=== PATIENT | female | born 1955 | race Caucasian/White ===

== ENCOUNTER 2021-04-25 11:40 | Emergency (ER) | payer OTHER ==
[2021-04-25 12:20] LABS: HEMATOCRIT 23.8 % (32.4-45.2); HEMOGLOBIN 7.9 GM/dL (10.7-15.3); MCH 30.8 pg (25.7-33.7); MCHC 33.2 g/dl (32.0-36.0); MEAN CELL VOLUME 92.8 fl (80-96); MEAN PLT VOLUME 8.4 fl (7.5-11.1); PLATELET COUNT 393 10^3/uL (134-434); RBC 2.56 M/mm3 (3.60-5.2); RDW 21.4 % (11.6-15.6); WHITE BLOOD COUNT 27.6 K/mm3 (4.0-10.0)
[2021-04-25 12:31] LABS: INR 1.08 (0.83-1.09); PROTHROMBIN TIME (PATIENT) 13.3 SEC (9.7-13.0)
[2021-04-25 12:33] LABS: ACTIVATED PTT 28.9 SECONDS (25.2-36.5)
[2021-04-25 12:42] LABS: CHLORIDE 92 mmol/L (98-107); SODIUM 136 mmol/L (136-145)
[2021-04-25 12:45] LABS: ALBUMIN 2.4 g/dl (3.4-5.0); ANION GAP 19 MMOL/L (8-16); BLOOD UREA NITROGEN 86.4 mg/dL (7-18); CALCIUM 9.3 mg/dL (8.5-10.1); CO2 24 mmol/L (21-32)
[2021-04-25 12:46] LABS: GLUCOSE,RANDOM 335 mg/dL (74-106)
[2021-04-25 12:48] LABS: SGPT/ALT 17 U/L (13-61)
[2021-04-25 12:49] LABS: CREATININE 3.9 mg/dL (0.55-1.3); SGOT/AST 39 U/L (15-37)
[2021-04-25 12:50] LABS: BILIRUBIN,TOTAL 0.4 mg/dL (0.2-1); TOT PROT 8.8 g/dl (6.4-8.2)
[2021-04-25 12:51] LABS: ALK PHOS 182 U/L (45-117)
[2021-04-25 12:56] VITALS: BMI 29.9
[2021-04-25 12:59] VITALS: TEMP 100.3
[2021-04-25] MEDS ORDERED: VANCOMYCIN 1 GM in D5W (PRE-DOCKED) 1,000 MG/250 ML IVPB ONE (13:00)
[2021-04-25] MEDS ORDERED: PIPERACILLIN/TAZOB 3.375 GM 3.375 GM in DEXTROSE 5%-WATER - 50 ML IVPB ONE (13:00)
[2021-04-25] MEDS ORDERED: ACETAMINOPHEN 1000 MG/100 ML VIAL (NON FORMULARY) IVPB ONE (13:03)
[2021-04-25] MEDS ORDERED: ACETAMINOPHEN INJECTION 100 ML IVPB ONE (13:06)
[2021-04-25] MEDS ORDERED: PIPERACILLIN/TAZOB 3.375 GM 3.375 GM/50 ML BAG IVPB ONE (13:41)
[2021-04-25 13:54] LABS: VENOUS O2 SATURATION 86.3 % (70-80); VENOUS PCO2 37.1 mmHg (38-52); VENOUS PH 7.49 (7.310-7.410)
[2021-04-25 14:22] LABS: LACTIC ACID 2.1 mmol/L (0.4-2.0)
[2021-04-25] MEDS ORDERED: LACTATED RINGERS SOLUTION 1000 ML INFUS.BAG IV ONE (14:32)
[2021-04-25] MEDS ORDERED: ALBUTEROL SO4 2.5/IPRATROPIUM 0.5 INH SOL 3 ML VIAL.NEB. NEB ONE (14:47)
[2021-04-25 15:09] LABS: ANISOCYTOSIS 1+; MACROCYTOSIS 0; PLATELET ESTIMATE NORMAL
[2021-04-25 15:50] VITALS: BP 110/53; PULSE 75
== END 2021-04-25 15:57 | disposition short-term general hospital (02) ==
LOC: JER 11:40
PROC: 3E03329 Introduction of Other Anti-infective into Peripheral Vein, Percutaneous Approach (ICD-10-PCS; principal; 2021-04-25)
PROC: 3E03329 Introduction of Other Anti-infective into Peripheral Vein, Percutaneous Approach (ICD-10-PCS; 2021-04-25)
PROC: 3E033NZ Introduction of Analgesics, Hypnotics, Sedatives into Peripheral Vein, Percutaneous Approach (ICD-10-PCS; 2021-04-25)
DX: A41.9 Sepsis, unspecified organism (principal); J95.09 Other tracheostomy complication
CPT/HCPCS: 36415; 71045-TC-FY; 80053; 82803; 82962; 83605; 84484; 85025; 85610; 85730; 86850; 86900; 86901; 87040; 87186; 93005; 93010; 96365; 96375; 96376; 99284-25; C9803; J0131; U0003; U0005